=== PATIENT | male | born 1950 | race Caucasian/White ===

== ENCOUNTER 2018-03-29 06:25 | Day surgery (SDC) | payer MEDICARE, OTHER ==
[2018-03-29] MEDS: PHENYLEPHRINE 2.5% OPHTH SOL 2ML OD (07:07)
[2018-03-29] MEDS ORDERED: MIDAZOLAM INJ 2 MG/2 ML VIAL (J2250) As Ordered (07:07)
[2018-03-29] MEDS ORDERED: fentaNYL 100 MCG/2 ML INJECTION (J3010) As Ordered (07:07)
[2018-03-29] MEDS: OFLOXACIN 0.3 % (OCUFLOX) OPTH SOL 5ML OD (07:07)
[2018-03-29] MEDS: TROPICAMIDE 1% OPHTH SOLN 2ML OD (07:07)
[2018-03-29] MEDS: PROPARACAINE 0.5% OPHTH SOL 15ML OD (07:08)
[2018-03-29] MEDS: POVIDONE-IODINE 5% OPHTH PREP SOL 30ML As Ordered (07:59)
[2018-03-29] MEDS: BALANCED SALT IRRIGATION SOLUTION 500ML BAG (FOR OR EYE MACHINE) As Ordered (08:01)
[2018-03-29] MEDS: MOXIFLOXACIN IN BSS 0.25MG/0.25ML INTRACAMERAL INJ (OR EYE ONLY)(J2280) As Ordered (08:01)
[2018-03-29] MEDS: DUOVISC (0.50ML VISCOAT/0.55ML PROVISC) OPHTH KIT As Ordered ×2 (08:01→08:15)
[2018-03-29] MEDS: LIDOCAINE 0.75%/EPINEPHRINE 0.025% IN BSS 1ML SYR INTRACAMERAL (OR ONLY) As Ordered ×2 (08:01)
[2018-03-29] MEDS: ACETYLCHOLINE OPHTH SOLN 1% 2ML (MIOCHOL-E) As Ordered (08:16)
== END 2018-03-29 09:08 | disposition home or self-care (01) ==
LOC: M SDC 06:25
DX: H25.11 Age-related nuclear cataract, right eye (principal); G47.30 Sleep apnea, unspecified; Z79.82 Long term (current) use of aspirin
CPT/HCPCS: 66984

== ENCOUNTER 2018-11-13 08:13 | Day surgery (SDC) | payer MEDICARE, OTHER ==
[~2018-11-13] VITALS: Ht 177.8 cm; Wt 136.9 kg
[~2018-11-13 08:13] MED LIST: ASPI81TA26 PO; LR 1,000 ML IV ONE; ceFAZolin SOD 1 GM in D5W MINI-BAG PLUS 50 ML IV ONE
[2018-11-13] MEDS ORDERED: MIDAZOLAM INJ 2 MG/2 ML VIAL (J2250) As Ordered ONE (11:01)
[2018-11-13] MEDS ORDERED: LIDOCAINE 2% INJ 100 MG/5 ML SDV (FOR ANES.) As Ordered ONE (11:02)
[2018-11-13] MEDS ORDERED: fentaNYL 250 MCG/5 ML INJECTION (J3010) As Ordered ONE (11:02)
[2018-11-13] MEDS ORDERED: PROPOFOL 200 MG/20 ML VIAL As Ordered ONE (11:02)
[2018-11-13] MEDS ORDERED: dexameTHASONE 4 MG/ML 1ML VIAL (J1100) As Ordered ONE (11:02)
[2018-11-13] MEDS ORDERED: ROCURONIUM BROMIDE 50 MG/5 ML VIAL As Ordered ONE (11:02)
[2018-11-13] MEDS ORDERED: ONDANSETRON 4MG/2ML VIAL (J2405) As Ordered ONE (11:02)
[2018-11-13] MEDS ORDERED: BUPIVACAINE HCL 0.25% 10 ML VIAL As Ordered ONE (11:10)
[2018-11-13] MEDS ORDERED: BUPIVACAINE LIPOSOME/PF 1.3% 20ML VIAL (13.3MG/ML)(EXPAREL)(C9290 PER1MG) As Ordered ONE (11:10)
[2018-11-13] MEDS ORDERED: BUPIVACAINE/EPIN 0.25% 30 ML VIAL As Ordered ONE (11:10)
[2018-11-13] MEDS ORDERED: PROPOFOL 500 MG/50 ML VIAL As Ordered ONE (12:04)
[2018-11-13] MEDS ORDERED: hydrALAZINE INJ 20 MG/ML VIAL As Ordered ONE (12:07)
[2018-11-13] MEDS ORDERED: NEOSTIGMINE 10 MG/10 ML VIAL (J2710) As Ordered ONE (12:22)
[2018-11-13] MEDS ORDERED: KETOROLAC 60 MG/2 ML VIAL (J1885) As Ordered ONE (12:22)
[2018-11-13] MEDS ORDERED: GLYCOPYRROLATE INJ 0.2 MG/ML 2 ML VIAL As Ordered ONE (12:22)
[2018-11-13] MEDS ORDERED: ACETAMINOPHEN 1000MG 100ML IV BTL (OFIRMEV) (J0131 PER 10MG) As Ordered ONE (12:24)
[2018-11-13] MEDS ORDERED: NORCO, ANEXSIA 5/325MG TABLET (HYDROcodone/ACETAMINOPHEN) PO PRN (13:00)
[2018-11-13] MEDS ORDERED: LR 1,000 ML IV SCH ×2 (13:00)
[2018-11-13] MEDS ORDERED: fentaNYL 100 MCG/2 ML INJECTION (J3010) IV PRN (13:00)
[2018-11-13] MEDS ORDERED: MORPHINE 10 MG/ML 1ML VIAL (J2270) IV PRN (13:00)
[2018-11-13] MEDS ORDERED: ONDANSETRON 4MG/2ML VIAL (J2405) IV PRN ×2 (13:00)
--- NOTE | 2018-11-13 13:10 | RO ---
DATE OF PROCEDURE: 11/13/2018 PREPROCEDURE DIAGNOSIS: Umbilical hernia. POSTPROCEDURE DIAGNOSIS: Umbilical hernia. PROCEDURE: Umbilical hernia repair with ventral patch. SURGEON: Dr. Rick Bhandari [employer]ASEBALL INSPECTOR: ANESTHESIA: General endotracheal anesthesia. ESTIMATED BLOOD LOSS: Minimal. FLUIDS: Crystalloid. BRIEF PROCEDURE OF SUMMARY: The patient was brought to the operating room and was given adequate anesthesia. After adequate anesthesia preoperative antibiotics were given. Patient was prepped and draped in the usual sterile fashion. Next a supraumbilical incision was made with a skin knife, blunt dissection was carried down to fascia and fascia was evaluated and clear of surrounding tissue and the hernia was circumferentially cleared of surrounding tissue. The hernia sac was transected the level of the fascia and there was preperitoneal fat within the hernia sac which was coming through, it was ligated at its base and transected. The peritoneum circumferentially was evaluated by finger palpation and revealed the fascia in appropriate position and the peritoneum in the appropriate position. The ventral patch was placed in the peritoneal cavity making sure that this was abutting the peritoneum posteriorly and the tails of the mesh were sutured superiorly and inferiorly with 0 Ethibond. 0 Ethibond was used to close the fascia with figure of eight suture. 3-0 Vicryl was used to approximate the dermis. 4-0 was used to approximate the skin. Steri-strips and a dry sterile dressing was applied and patient was awakened, extubated, and brought to the recovery room awake, alert, and hemodynamically stable. Sponge and needle counts correct times two.
[2018-11-13 15:05] VITALS: BP 158/83
== END 2018-11-13 15:05 | disposition home or self-care (01) ==
LOC: M SDC 08:13
PROVIDERS: ATTEND Surgery
DX: K42.9 Umbilical hernia without obstruction or gangrene (principal); G47.30 Sleep apnea, unspecified; Z91.041 Radiographic dye allergy status; Z79.82 Long term (current) use of aspirin
CPT/HCPCS: 49585; 88302; C1781; C9290; J0131; J0690; J1100; J1885; J2250; J2405; J2710; J3010

== ENCOUNTER → 2021-10-27 | Outpatient (REF) | payer MEDICARE, OTHER ==
[~2021-10-27] MED LIST changes: -LR 1,000 ML IV ONE; -ceFAZolin SOD 1 GM in D5W MINI-BAG PLUS 50 ML IV ONE
[2021-10-29 14:45] LABS: FOLATE 4.9 NG/ML
== END ==
LOC: M LAB REF 16:50
PROVIDERS: ATTEND Internal Medicine
DX: R20.2 Paresthesia of skin (principal)

== ENCOUNTER → 2023-05-16 | Outpatient (CLI) | payer MEDICARE, OTHER | LOC: M RAD 07:23 | PROVIDERS: ATTEND Internal Medicine | DX: R93.5 Abnormal findings on diagnostic imaging of other abdominal regions, including retroperitoneum (principal) ==

== ENCOUNTER → 2024-05-14 | Outpatient (CLI) | payer MEDICARE, OTHER | LOC: M RAD 11:10 | PROVIDERS: ATTEND Internal Medicine | DX: M79.89 Other specified soft tissue disorders (principal); M79.662 Pain in left lower leg; R60.0 Localized edema ==